=== PATIENT | female | born 1940 | race Caucasian/White ===

== ENCOUNTER 2021-04-09 07:46 | Day surgery (SDC) | payer OTHER ==
[~2021-04-09] VITALS: Ht 160 cm; Wt 77.1 kg
[~2021-04-09 07:46] MED LIST: ALPR.5 PO; Alprazolam0.5 MG PO; Amlodipine Besyl5 MG PO; Aspirin EC81 MG; BUSP10 PO; CEFD300; CLON.2 PO; DIPATR PO; ERGO400; Entocort EC 3 mg3 MG PO; HYDCHL12.5 PO; LEVSOD88 PO; LOPE2C PO; NEBI10 PO; OLME40 PO; ONDA4ODT; Questran4 GM PO; SPIR50 PO; TRAZ50 PO; UNISOM25 MG PO
[2021-04-09] MEDS ORDERED: ALEN10 (08:09)
--- NOTE | 2021-04-09 09:12 | NUR ---
04/09/21 0912 Laura Lu VITALS SIGNS PROGRAMMED TO TAKE EVERY 2 MIN. ON MONITOR BUT WILL ONLY PRINT EVERY 5 MIN. PER BIOMED.
== END 2021-04-09 09:50 | disposition home or self-care (01) ==
LOC: ORSCSDS 07:46
PROVIDERS: Internal Medicine Gastroenterology
PROC: 0DBK8ZX Excision of Ascending Colon, Via Natural or Artificial Opening Endoscopic, Diagnostic (ICD-10-PCS; principal; 2021-04-09 09:00)
DX: Z12.11 Encounter for screening for malignant neoplasm of colon (principal); Z86.010 Personal history of colon polyps; D12.2 Benign neoplasm of ascending colon; I10 Essential (primary) hypertension; E66.9 Obesity, unspecified; Z68.30 Body mass index [BMI] 30.0-30.9, adult; Z79.899 Other long term (current) drug therapy
CPT/HCPCS: 88305; J2704; J7120

== ENCOUNTER 2023-09-01 12:41 | Observation (INO) | payer OTHER ==
[~2023-09-01] VITALS: Ht 160 cm; Wt 80.1 kg
[~2023-09-01 12:41] MED LIST changes: +ALEN10; +LEVSOD75 PO; +NEBI5 PO; +SPIR25 PO; -SPIR50 PO
[2023-09-01 14:16] LABS: BASOPHILS ABSOLUTE AUTO 0.06 K/mm3 (0.00-0.23); BASOPHILS PERCENT AUTO 1 % (0-2); EOSINOPHILS ABSOLUTE AUTO 0.05 K/mm3 (0.00-0.68); EOSINOPHILS PERCENT AUTO 0 % (0-6); IMMATURE GRAN ABSOLUTE AUTO 0.03 K/mm3 (0.00-0.10); IMMATURE GRAN PERCENT AUTO 0 % (0-1); LYMPHOCYTES ABSOLUTE AUTO 1.12 K/mm3 (0.84-5.20); LYMPHOCYTES PERCENT AUTO 9 % (21-46); MONOCYTES ABSOLUTE AUTO 0.64 K/mm3 (0.16-1.47); MONOCYTES PERCENT AUTO 5 % (4-13); Mean Corpuscular HGB 32.8 pg (26.0-34.0); Mean Corpuscular HGB Conc 33.3 g/dL (31.5-36.5); Mean Corpuscular Volume 98 fL (80-100); Mean Platelet Volume 10.1 fL (9.1-12.4); NEUTROPHILS ABSOLUTE AUTO 10.74 K/mm3 (1.96-9.15); NEUTROPHILS PERCENT AUTO 85 % (41-73); Platelet Count 291 K/mm3 (150-400); RDW Coefficient Variation 13.5 % (11.7-14.2); RDW Standard Deviation 48.8 fL (35.1-46.3); Red Blood Cell Count 4.27 M/mm3 (3.80-5.20); White Blood Cell Count 12.64 K/mm3 (4.00-11.30)
[2023-09-01 14:34] LABS: Albumin, Blood 3.7 g/dL (3.4-5.0); Albumin/Globulin Ratio 0.9 (0.8-1.8); Bilirubin, Total 0.7 mg/dL (0.1-1.0); Bun/Creatinine Ratio 24.3 (12.0-20.0); Calcium, Blood 8.8 mg/dL (8.5-10.1); Creatinine, Blood 0.9 mg/dL (0.40-1.00); Globulin, Blood 3.9 g/dL (2.2-4.0); Magnesium, Blood 2.3 mg/dL (1.6-2.4); Potassium, Blood 4.6 mmol/L (3.5-5.5); Total Protein, Blood 7.6 g/dL (6.4-8.2)
[2023-09-01] MEDS ORDERED: NS 1,000 ML IV SCH (14:45)
[2023-09-01] MEDS ORDERED: FLUO10 PO (15:00)
[2023-09-01] MEDS ORDERED: Metoprolol Tartrate 1 MG/ML 5 ML VIAL IV PRN (17:05)
[2023-09-01] MEDS ORDERED: ALPRAZolam 0.5 MG Tab PO PRN (17:55)
[2023-09-01 18:10] LABS: Source, Urine Clean Catch
[2023-09-01] MEDS ORDERED: Spironolactone 50 MG Tab PO SCH (18:16)
[2023-09-01 18:17] LABS: Appearance, Urine Clear (Clear); Bilirubin, Urine Neg (Neg); Blood, Urine Neg (Neg); Color, Urine Yellow (P-Yellow); Glucose Qualitative, Urine Neg (Neg); Ketones, Urine Neg (Neg); Leukocyte Esterase, Urine 1+ (Neg); Nitrite, Urine Neg (Neg); Protein, Urine Neg (Neg); Urobilinogen, Urine NORM (Normal)
[2023-09-01 18:26] LABS: Bacteria Few /hpf; Red Blood Cells, Urine 0-2 /hpf (0-2); Squamous Epithelial Cells Few /hpf (Few)
[2023-09-01] MEDS ORDERED: Spironolactone 25 MG Tab PO SCH (18:30)
[2023-09-01] MEDS ORDERED: Carvedilol 6.25 MG Tab PO SCH (18:30)
[2023-09-01 21:50] VITALS: BP 149/110
[2023-09-01 22:50] LABS: Anti-Xa UFH, PHA Monitoring <0.10 IU/mL; International Normalized Ratio 1.03
[2023-09-01] MEDS ORDERED: Heparin Sodium,Porcine/0.5 NS 500 ML IV SCH (23:25)
[2023-09-01] MEDS ORDERED: Heparin Sodium 5000 Units/ML 1ML MDV IV ONE (23:25)
[2023-09-02] VITALS (13 sets, daily range): BP systolic 108–165; BP diastolic 57–106
[2023-09-02] MEDS ORDERED: Levothyroxine Sodium 0.075 MG Tab PO SCH (06:00)
--- NOTE | 2023-09-02 06:51 | NUR ---
SHIFT SUMMARY: PT A/O X 4, STANDBY ASSIST PLEASANT AND COOPERATIVE ADMITTED FROM ER LAST NIGHT. PT ON HEPARIN DRIP AT THIS TIME. PT UP TO BATHROOM WITH STANDBY ASSIST. PT HAD COMPLAINTS OF TOLERABLE MILD INTERMITTENT PAIN TO R ARM. NO OTHER COMPLAINTS THROUGH THE NIGHT. PT ON RA. ECHO SCHEDULED TODAY.
[2023-09-02 07:48] LABS: Hematocrit 39.2 % (33.0-51.0); Hemoglobin 12.8 g/dL (11.5-16.0); Mean Corpuscular HGB 32.7 pg (26.0-34.0); Mean Corpuscular HGB Conc 32.7 g/dL (31.5-36.5); Mean Corpuscular Volume 100 fL (80-100); Platelet Count 274 K/mm3 (150-400); RDW Coefficient Variation 13.6 % (11.7-14.2); RDW Standard Deviation 50.1 fL (35.1-46.3); Red Blood Cell Count 3.92 M/mm3 (3.80-5.20); White Blood Cell Count 9.99 K/mm3 (4.00-11.30)
[2023-09-02] MEDS ORDERED: Verapamil HCL 2.5 MG/ML 2ML Injection ONE (08:19)
[2023-09-02] MEDS ORDERED: NS 500 ML IV ONE (08:20)
[2023-09-02] MEDS ORDERED: NS 1,000 ML IV ONE ×3 (08:22→09:18)
[2023-09-02] MEDS ORDERED: Heparin Sodium 1000 Units/ML 10ML MDV ONE (08:22)
[2023-09-02] MEDS ORDERED: Nitroglycerin 2 MG/20 ML BTL ONE (08:23)
--- NOTE | 2023-09-02 08:32 | NUR ---
pt was given coreg, held other meds per Dr. Mirza nurse, she is a/ox4, pleasant and cooperative with care, follows commands well, Dr. Coley saw her this am and is taking her for angio first thing, stopped heperin gtt, left via wheelchair for general labor. will go to [facility] after procedure.
[2023-09-02] MEDS ORDERED: Midazolam HCl 1MG / ML 2ML Vial ONE ×2 (08:40→09:12)
[2023-09-02] MEDS ORDERED: FentaNYL Citrate 50 MCG/ML 2 ML Injection ONE ×2 (08:40→09:12)
[2023-09-02] MEDS ORDERED: Ondansetron HCl 2 MG / ML 2ML Vial ONE (08:40)
[2023-09-02] MEDS ORDERED: Rivaroxaban 10 MG Tab PO SCH (09:00)
[2023-09-02] MEDS ORDERED: FLUoxetine HCl 10 MG Cap PO SCH (09:00)
[2023-09-02] MEDS ORDERED: Alteplase Recombinant 2 MG / Vial ONE (09:33)
--- NOTE | 2023-09-02 10:00 | NUR ---
gave report to Ankur CRAWLEY in [facility].
--- NOTE | 2023-09-02 10:05 | NUR ---
TRANSFER ASSESSMENT: Pt arrived to room [facility] from [facility]. HR irregular, tele shows afib. LS clear. BT positive. Pt laying flat, R groin site intact with no hematoma, swelling, bleeding or redness noted. Good radial and pedal pulses noted. Pt denies numbness or tingling in extrimities. Fingers warm to touch. Denies pain. VSS. Pt oriented to room, unit, call light. at bedside. Dr. Coley came to bedside and updated family and patient. Denies questions. Heparin gtt to resume. Will continue to monitor.
[2023-09-02] MEDS ORDERED: CARV6.25 PO (13:28)
[2023-09-02] MEDS ORDERED: ELIQUIS5 M6 PO (13:28)
[2023-09-02] MEDS ORDERED: CILO100 PO (14:43)
[2023-09-02] MEDS ORDERED: Apixaban 5 MG Tab PO ONE (16:00)
[2023-09-02] MEDS ORDERED: ATOR40TA PO (16:02)
--- NOTE | 2023-09-02 17:40 | NUR ---
discharge: Pt was evening medications and then given verbal and written discharge instructions. Denies questions. Pt was able to cone picker RX for eliquis prior to discharge. IV's were discontinued, caths intact. Groin site with no signs of bleeing, swelling or hematoma. Stable at time of discharge.
== END 2023-09-02 18:00 | disposition home health service (06) ==
LOC: ER 12:41 → MEDS 12:42 → PCU 09-02 09:55
PROVIDERS: Emergency Medicine; Nurse Practitioner Acute Care; ADMIT Student in an Organized Health Care Education/Training Program
DX: I48.91 Unspecified atrial fibrillation (principal); I10 Essential (primary) hypertension; E78.5 Hyperlipidemia, unspecified; E03.9 Hypothyroidism, unspecified; F41.9 Anxiety disorder, unspecified; E66.01 Morbid (severe) obesity due to excess calories; Z88.8 Allergy status to other drugs, medicaments and biological substances; Z79.890 Hormone replacement therapy; Z79.899 Other long term (current) drug therapy
CPT/HCPCS: 36415; 70450; 71046; 71275; 74175; 76937; 80053; 81001; 83735; 83880; 84443; 84484; 85025; 85027; 85520; 85610; 85730; 87086; 93005; 93010; 93306; 93922; 93931; 99152; 99153; 99285-25; A9270; C1725; C1760; C1769; C1887; C1894; G0378; J1644; J2250; J2405; J2997; J3010; J7030; J7050; Q9967

== ENCOUNTER → 2023-10-22 | Outpatient (CLI) | payer OTHER ==
[~2023-10-22] MED LIST changes: +ATOR40TA PO; +CARV6.25 PO; +CILO100 PO; +ELIQUIS5 M6 PO; +FLUO10 PO
[2023-10-23 05:36] LABS: Campylobacter Sp Not Detected (NOT DETECT); Plesiomonas Shigelloides Not Detected (NOT DETECT)
[2023-10-23 05:37] LABS: Adenovirus F 40/41 Not Detected (NOT DETECT); Astrovirus Not Detected (NOT DETECT); Cryptosporidium Not Detected (NOT DETECT); Cyclospora Cayetanensis Not Detected (NOT DETECT); E. Coli O157 Not Detected (NOT DETECT); Entamoeba Histolytica Not Detected (NOT DETECT); Enteroaggregative E. coli-EAEC Not Detected (NOT DETECT); Enteropathogenic E. coli-EPEC Not Detected (NOT DETECT); Enterotoxigenic E. coli-ETEC Not Detected (NOT DETECT); Giardia Lamblia Not Detected (NOT DETECT); Norovirus GI/GII Not Detected (NOT DETECT); Rotavirus A Not Detected (NOT DETECT); Salmonella Sp Not Detected (NOT DETECT); Sapovirus Not Detected (NOT DETECT); Shiga Toxin-prod E. coli-STEC Not Detected (NOT DETECT); Shigella/Enteroin E. coli-EIEC Not Detected (NOT DETECT); Vibrio Cholerae Not Detected (NOT DETECT); Vibrio Sp Not Detected (NOT DETECT); Yersinia Enterocolitica Not Detected (NOT DETECT)
[2023-10-25 06:29] LABS: CALPROTECTIN,FECAL 110 ug/g (<=49)
== END ==
LOC: LAB 13:40 → LAB SHORT 13:40
PROVIDERS: Physician Assistant
DX: K52.9 Noninfective gastroenteritis and colitis, unspecified (principal)
CPT/HCPCS: 83993; 87507

== ENCOUNTER → 2023-11-17 | Outpatient (CLI) | payer OTHER ==
[2023-11-17 16:19] LABS: Albumin, Blood 3.5 g/dL (3.4-5.0); Albumin/Globulin Ratio 0.8 (0.8-1.8); Bilirubin, Total 0.8 mg/dL (0.1-1.0); Bun/Creatinine Ratio 15.5 (12.0-20.0); Calcium, Blood 9.5 mg/dL (8.5-10.1); Creatinine, Blood 1.16 mg/dL (0.40-1.00); Globulin, Blood 4.2 g/dL (2.2-4.0); Potassium, Blood 5.2 mmol/L (3.5-5.5); Thyroid Stimulating Hormone 2.428 uIU/mL (0.360-4.800); Total Protein, Blood 7.7 g/dL (6.4-8.2)
[2023-11-17 17:49] LABS: Percent Saturation 18.6 % (15.0-50.0)
== END ==
LOC: LAB SHORT 15:34 → LAB 15:34
PROVIDERS: Physician Assistant
DX: D50.8 Other iron deficiency anemias (principal); E03.9 Hypothyroidism, unspecified; R53.83 Other fatigue
CPT/HCPCS: 80053; 82728; 83540; 83550; 84443

== ENCOUNTER → 2023-12-29 | Outpatient (CLI) | payer OTHER | END | disposition home or self-care (01) | LOC: LAB SHORT 08:02 → LAB 08:02 | DX: N94.9 Unspecified condition associated with female genital organs and menstrual cycle (principal) | CPT/HCPCS: 88305 ==

== ENCOUNTER → 2024-03-10 | Outpatient (CLI) | payer OTHER ==
[~2024-03-10] MED LIST changes: +METOPROLOL SUCC25 MG PO; +ZOLOFT25 MG PO
[2024-03-11 12:20] LABS: Stool Occult Bld Immuno 1 Negative (NEGATIVE)
== END ==
LOC: LAB SHORT 14:15 → LAB 14:15 → LAB SHORT 14:58
PROVIDERS: Physician Assistant
DX: R19.5 Other fecal abnormalities (principal)
CPT/HCPCS: G0328

== ENCOUNTER → 2024-11-22 | Outpatient (CLI) | payer OTHER ==
[~2024-11-22] MED LIST changes: +ONDA4ODT MM
[2024-11-22 20:01] LABS: Campylobacter Sp Not Detected (NOT DETECT); E. Coli O157 Not Detected (NOT DETECT); Enteroaggregative E. coli-EAEC Not Detected (NOT DETECT); Enteropathogenic E. coli-EPEC Not Detected (NOT DETECT); Enterotoxigenic E. coli-ETEC Not Detected (NOT DETECT); Salmonella Sp Not Detected (NOT DETECT); Shiga Toxin-prod E. coli-STEC Not Detected (NOT DETECT); Shigella/Enteroin E. coli-EIEC Not Detected (NOT DETECT); Vibrio Sp Not Detected (NOT DETECT)
== END ==
LOC: LAB SHORT 17:10 → LAB 17:10
PROVIDERS: Physician Assistant
DX: R19.7 Diarrhea, unspecified (principal)
CPT/HCPCS: 87507

== ENCOUNTER 2024-12-21 06:29 | Day surgery (SDC) | payer OTHER ==
[~2024-12-21] VITALS: Ht 160 cm; Wt 69.0 kg
[~2024-12-21 06:29] MED LIST changes: +Balanced Salt Epinephrine Irrigation Solution 500 mL IR SCH; +Moxifloxacin HCL 0.5 MG/0.1 ML 0.4MLSYR RIGHTEYE SCH; +Ondansetron 4 MG SoluTab MM PRN; +PHENYLEPHRINE\\TROPICAMIDE\\TETRACAINE OPHTHALMIC DILATING SOLN RIGHTEYE PRN; +Povidone-Iodine 450 DROP/30 ML Solution ONE; +Povidone-Iodine 450 DROP/30 ML Solution RIGHTEYE SCH; +Tetracaine HCl/Pf 0.5% Opth Soln 4 ml ONE; +Triamcinolone Inj Susp 40 MG / ML 1ML Vial INJ SCH; +diazePAM 2 MG,diazePAM 5 MG PO SCH
[2024-12-21] MEDS ORDERED: Triamcinolone Inj Susp 40 MG / ML 1ML Vial ONE (06:45)
--- NOTE | 2024-12-21 06:56 | NUR ---
12/21/24 0656 Gissell Ham INITIAL ANXIETY 10/10 PER PATIENT REPORT
[2024-12-21] MEDS ORDERED: SPIRONOLACTONE25 MG PO (07:06)
[2024-12-21] MEDS ORDERED: ALPRAZOLAM0.5 M1 PO (07:07)
[2024-12-21] MEDS ORDERED: EUTHYROX88 MC1 PO (07:07)
[2024-12-21] MEDS ORDERED: CELEXA10 MG PO (07:10)
[2024-12-21] MEDS ORDERED: ATORVASTATIN CA20 MG PO (07:11)
--- NOTE | 2024-12-21 07:56 | NUR ---
12/21/24 0756 Diana Barth HR: 77 BP:145/83 SPO2:100% ON 10L BLOW BY O2
[2024-12-21 08:16] VITALS: BP 147/102
== END 2024-12-21 08:32 | disposition home or self-care (01) ==
LOC: ORSCSDS 06:29
PROVIDERS: Ophthalmology
PROC: 08RJ3JZ Replacement of Right Lens with Synthetic Substitute, Percutaneous Approach (ICD-10-PCS; principal; 2024-12-21 08:00)
DX: H25.813 Combined forms of age-related cataract, bilateral (principal); I48.91 Unspecified atrial fibrillation; I10 Essential (primary) hypertension; H35.30 Unspecified macular degeneration; E07.9 Disorder of thyroid, unspecified; Z79.899 Other long term (current) drug therapy
CPT/HCPCS: A9270; J2003; J3301; V2632

== ENCOUNTER 2024-12-28 07:29 | Day surgery (SDC) | payer OTHER ==
[~2024-12-28] VITALS: Ht 160 cm; Wt 70.6 kg
[~2024-12-28 07:29] MED LIST changes: +ALPRAZOLAM0.5 M1 PO; +ATORVASTATIN CA20 MG PO; +CELEXA10 MG PO; +EUTHYROX88 MC1 PO; +Moxifloxacin HCL 0.5 MG/0.1 ML 0.4MLSYR LEFTEYE SCH; -Moxifloxacin HCL 0.5 MG/0.1 ML 0.4MLSYR RIGHTEYE SCH; +PHENYLEPHRINE\\TROPICAMIDE\\TETRACAINE OPHTHALMIC DILATING SOLN LEFTEYE PRN; -PHENYLEPHRINE\\TROPICAMIDE\\TETRACAINE OPHTHALMIC DILATING SOLN RIGHTEYE PRN; +Povidone-Iodine 450 DROP/30 ML Solution LEFTEYE SCH; -Povidone-Iodine 450 DROP/30 ML Solution RIGHTEYE SCH; +SPIRONOLACTONE25 MG PO; +Triamcinolone Inj Susp 40 MG / ML 1ML Vial ONE
--- NOTE | 2024-12-28 08:25 | NUR ---
12/28/24 0825 Latha Pemberton PT'S SYSTOLIC BP WAS ELEVATED AND OUT OF PARAMETERS UPON ARRIVAL TO PREOP. AFTER LAYING PATIENT DOWN BP WAS RETAKEN TWICE AND STILL ELEVATED BUT WITHIN PARAMETERS. PATIENT HAS AFIB AND UNABLE TO OBTAIN ACCURATE HEART RATE READING THOUGH OXIM[employer]ER. RHYTHM STRIP PRINTED AND PLACED IN CHART. HR RANGED FROM 80-108. 7MG PO VALIUM GIVEN AT 0822 AFTER VS WITHIN PARAMETERS PER ORDERS.
--- NOTE | 2024-12-28 08:53 | NUR ---
12/28/24 0853 Diana Barth HR: 77 BP: 171/91 SPO2: 100% ON 8L BLOW BY O2
[2024-12-28 09:06] VITALS: BP 179/100
--- NOTE | 2024-12-28 09:18 | NUR ---
12/28/24 0918 Arnaldo Lin PT HTN AT BASELINE. OK TO D/C HOME PER DR SHAY. PLAN FOR DR SHAY TO TALK WITH PT'S PCP REGARDING HTN.
== END 2024-12-28 09:26 | disposition home or self-care (01) ==
LOC: ORSCSDS 07:29
PROVIDERS: Ophthalmology
PROC: 08RK3JZ Replacement of Left Lens with Synthetic Substitute, Percutaneous Approach (ICD-10-PCS; principal; 2024-12-28 09:00)
DX: H25.812 Combined forms of age-related cataract, left eye (principal); Z96.1 Presence of intraocular lens; I10 Essential (primary) hypertension; E07.9 Disorder of thyroid, unspecified; I48.91 Unspecified atrial fibrillation; Z79.01 Long term (current) use of anticoagulants; Z79.899 Other long term (current) drug therapy
CPT/HCPCS: A9270; J2003; J3301; V2632

== ENCOUNTER → 2025-02-20 | Outpatient (CLI) | payer OTHER ==
[~2025-02-20] MED LIST changes: -Balanced Salt Epinephrine Irrigation Solution 500 mL IR SCH; -Moxifloxacin HCL 0.5 MG/0.1 ML 0.4MLSYR LEFTEYE SCH; -Ondansetron 4 MG SoluTab MM PRN; -PHENYLEPHRINE\\TROPICAMIDE\\TETRACAINE OPHTHALMIC DILATING SOLN LEFTEYE PRN; -Povidone-Iodine 450 DROP/30 ML Solution LEFTEYE SCH; -Povidone-Iodine 450 DROP/30 ML Solution ONE; -Tetracaine HCl/Pf 0.5% Opth Soln 4 ml ONE; -Triamcinolone Inj Susp 40 MG / ML 1ML Vial INJ SCH; -Triamcinolone Inj Susp 40 MG / ML 1ML Vial ONE; -diazePAM 2 MG,diazePAM 5 MG PO SCH
[2025-02-20 15:05] LABS: C DIFFICILE DNA NEGATIVE (Negative)
[2025-02-22 10:58] LABS: FAT, FECAL - NEUTRAL Normal (Normal); FAT, FECAL - SPLIT Increased (Normal)
[2025-02-24 18:18] LABS: CALPROTECTIN,FECAL <5 ug/g (<=49)
[2025-02-24 22:19] LABS: OVA AND PARASITE,FECAL INTERP Negative (Negative)
== END ==
LOC: LAB SHORT 09:00 → LAB 09:00
PROVIDERS: Family Medicine
DX: K52.9 Noninfective gastroenteritis and colitis, unspecified (principal)
CPT/HCPCS: 82705; 83993; 87177; 87209; 87493; 89055